=== PATIENT | female | born 1940 | race Two or more races ===

== ENCOUNTER 2025-01-17 11:32 | Emergency (ER) | payer MEDICARE, MEDICAID ==
[~2025-01-17] VITALS: Ht 157.5 cm; Wt 71.1 kg
--- NOTE | 2025-01-17 12:19 | ED.PDOC ---
HPI (NEURO) HPI Comments 84y F who presents to the ED for chief complaint of L sided weakness. Pt states she has been having L sided headache, L sided facial numbness, and L sided weakness for the past 2 days. Pt has been having associated chest pain and nausea, with associated dysuria and urinary frequency. Pt otherwise is alert and oriented and denies any changes in vision, gait or speech. Pt denies any medical history or use of medications. Pt denies any other symptoms at this time. 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[employer]ESSOR Hx Family History Family History: Reviewed,noncontributory to illness Social History Smoker: Non-Smoker Alcohol: Denies ETOH Use Drugs: Denies Drug Use Lives In: Home Constitutional: denies: chills, diaphoresis, fatigue, fever, malaise, sweats, weakness, others EENTM: denies: blurred vision, double vision, ear bleeding, ear discharge, ear drainage, ear pain, ear ringing, eye pain, eye redness, hearing loss, mouth pain, mouth swelling, nasal discharge, nose bleeding, nose congestion, nose pain, photophobia, tearing, throat pain, throat swelling, voice changes, others Respiratory: denies: cough, hemoptysis, orthopnea, SOB at rest, shortness of breath, SOB with excertion, stridor, wheezing, others Cardiovascular: reports: chest pain; denies: dizzy spells, diaphoresis, Dyspnea on exertion, edema, irregular heart beat, left arm pain, lightheadedness, palpitations, PND, syncope, others Gastrointestinal: reports: nausea; denies: abdomen distended, abdominal pain, blood streaked bowels, constipated, diarrhea, dysphagia, difficulty swallowing, hematemesis, melena, poor appetite, poor fluid intake, rectal bleeding, rectal pain, vomiting, others Genitourinary: denies: abnormal vagina bleeding, burning, dyspareunia, dysuria, flank pain, frequency, hematuria, incontinence, pain, , vagina discharge, urgency, others Neurological: reports: headache, left sided numbness, left sided weakness; denies: dizziness, fainting, numbness, paresthesia, pre-existing deficit, right sided numbness, right sided weakness, seizure, speech problems, tingling, tremors, weakness, others Musculoskeletal: denies: back pain, gout, joint pain, joint swelling, muscle pain, muscle stiffness, neck pain, others Integumetry: denies: bruises, change in color, change in hair/nails, dryness, laceration, lesions, lumps, rash, wounds, others Allergic/Immunocompromised: denies: Difficulty Healing, Frequent Infections, Hives, Itching, others Hematologic/Lymphatic: denies: anemia, blood clots, easy bleeding, easy bruising, swollen glands, others Endocrine: denies: excessive hunger, excessive sweating, excessive thirst, excessive urination, flushing, intolerance to cold, intolerance to heat, unexplained weight gain, unexplained weight loss, others Psychiatric: denies: anxiety, bipolar disorder, depression, hopeless, panic disorder, schizophrenia, sleepless, suicidal, others All Other Systems: Reviewed and Negative Physical Exam General Appearance: No Apparent Distress, Normal HEENT: Normal ENT Inspection, Pharynx Normal, TMs Normal Neck: Full Range of Motion, Non-Tender, Normal, Normal Inspection Respiratory: Chest Non-Tender, Lungs Clear, No Accessory Muscle Use, No Respiratory Distress, Normal Breath Sounds Cardiovascular: No Edema, No JVD, No Murmur, No Gallop, Normal Peripheral Pulses, Regular Rate/Rhythm Breast Exam: Deferred Gastrointestinal: No Organomegaly, Non Tender, No Pulsatile Mass, Normal Bowel Sounds, Soft Genitalia: Deferred Pelvic: Deferred Rectal: Deferred Extremities: No calf tenderness, Normal capillary refill, Normal inspection, Normal range of motion, Non-tender, No pedal edema Musculoskeletal : Apperance: Normal Neurologic: Alert, 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 Was a procedure done?: No Differential Diagnosis (SZ) Seizure: Closed Head Injury, CVA/TIA, Hypocalcemia, Hypoglycemia, Hyponatremia, Encephalopathy CVA: TIA General Weakness: Anemia, Dehydration, Hypotension, Vertigo: central, Vertigo: peripheral, Other (UTI, ) Headache: Migraine, Epidural Hemorrhage, Intracerebral Hemorrhage, Subarachnoid Hemorrhage, Sinusitis X-Ray, Labs, Meds, VS Vital Signs Date Time Temp Pulse Resp B/P (MAP) Pulse Ox O2 Delivery O2 Flow Rate FiO2 01/17/25 11:46 84 01/17/25 11:34 97.8 91 16 123/68 99 97.8 Lab Test 01/17/25 13:07 Range/Units White Blood Count 8.1 4.4-10.8 10^3/uL Red Blood Count 4.61 4.0-5.20 10^6/uL Hemoglobin 15.1 12.2-16.2 g/dL Hematocrit 44.6 36.0-46.0 % Mean Corpuscular Volume 96.7 80.0-100.0 fL Mean Corpuscular Hemoglobin 32.7 H 28.0-32.0 pg Mean Corpuscular Hemoglobin Concent 33.9 32.0-36.0 g/dL Red Cell Distribution Width 14.5 H 11.8-14.3 % Platelet Count 297 140-450 10^3/uL Mean Platelet Volume 8.8 6.9-10.8 fL Neutrophils (%) (Auto) 62.6 37.0-80.0 % Lymphocytes (%) (Auto) 26.5 10.0-50.0 % Monocytes (%) (Auto) 9.8 0.0-12.0 % Eosinophils (%) (Auto) 0.6 0.0-7.0 % Basophils (%) (Auto) 0.5 0.0-2.0 % Neutrophils # (Auto) 5.0 1.6-8.6 10 ^3/uL Lymphocytes # (Auto) 2.1 0.4-5.4 10 ^3/uL Monocytes # (Auto) 0.8 0-1.3 10 ^3/uL Eosinophils # (Auto) 0.1 0-0.8 10 ^3/uL Basophils # (Auto) 0 0-0.2 10 ^3/uL Nucleated Red Blood Cells 0.2 % Sodium Level 140 136-145 mmol/L Potassium Level 4.1 3.5-5.1 mmol/L Chloride Level 108 H 98-107 mmol/L Carbon Dioxide Level 23 20-31 mmol/L Anion Gap 9 5-15 Blood Urea Nitrogen 12 9-23 mg/dL Creatinine 0.90 0.550-1.02 mg/dL Glomerular Filtration Rate Calc 63 >90 mL/min BUN/Creatinine Ratio 13.3 10.0-20.0 Serum Glucose 102 74-106 mg/dL Calcium Level 10.2 8.7-10.4 mg/dL Troponin I High Sensitivity < 3 L </=34 ng/L B-Type Natriuretic Peptide 31.71 0-100 pg/mL Lipase Pending [place] [address] Ph: [phone] DIAGNOSTIC IMAGING Diagnostic Imaging Report : [id number] Signed PATIENT: KACI JASSO ACCT: [id number] UNIT: [id number] : 1940 LOC: ER ROOM / BED: / AGE / SEX: 84 / F ADM STATUS: REG ER SERVICE 120 ORDERING PHYSICIAN: NISH HOPKINS MD PROCEDURE(s): HWOCT - HEAD WITHOUT CONTRAST REASON: left headache and left face/body numbness x 2 day ORDER NUMBER(s): [id number], ACCESSION NUMBER(s): [id number] CT brain without contrast CLINICAL INDICATION: left headache and left face/body numbness x 2 day FINDINGS: The study was performed in a multidetector scanner. This study performed taking axial images from the skull base up to the vertex. Both brain and bone windows are photographed. Dose lowering techniques have been used including automated exposure control and adjustment of mA and/or KV according to patient size. No intraparenchymal hemorrhage or edema. Cortical sulcal markings are prominent No hydrocephalus. No midline shift. There is thickening of the intra diploic spaces of the skull particularly in the frontal regions Paranasal sinuses are clear IMPRESSION: 1. No acute intracranial pathology. Atrophy. 2. 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 ATED BY: NONA LAW MD DICTATED DATE/TIME: 01/17/251241 SIGNED BY: NONA LAW MD SIGNED DATE/TIME: 01/17/251241 CC: [address] [address] Ph: [phone] DIAGNOSTIC IMAGING Diagnostic Imaging Report : [id number] Signed PATIENT: KACI JASSO ACCT: [id number] UNIT: [id number] : 1940 LOC: ER ROOM / BED: / AGE / SEX: 84 / F ADM STATUS: REG ER SERVICE 06 ORDERING PHYSICIAN: NISH HOPKINS MD PROCEDURE(s): CXR1 - CHEST XRAY 1 VIEW REASON: chest pain ORDER NUMBER(s): [id number], ACCESSION NUMBER(s): [id number] EXAM: XY CHEST XRAY 1 VIEW Indication: chest pain Technique: Single frontal view of the chest was obtained Comparison: None FINDINGS: Lines and Tubes: None Lungs: No focal consolidation. Pleura: No effusion. No pneumothorax. Cardiomediastinal contours: Unremarkable Bones: No acute osseous abnormality. IMPRESSION: No acute cardiopulmonary disease. ATED BY: ABDIFATAH MESA MD DICTATED DATE/TIME: 01/17/251244 SIGNED BY: ABDIFATAH MESA MD SIGNED DATE/TIME: 01/17/251244 CC: X-Ray, Labs, Meds, VS Comment 84-year-old female here today with the complaints of headache, numbness and weakness as above, and intermittent chest pains. Vital signs stable, afebrile. Physical exam without any acute findings including a normal neurologic exam. CT head scan unremarkable for acute bleed. Labs overall reassuring with evidence of negative troponin, no significant electrolyte abnormalities, no significant renal dysfunction. EKG without evidence of acute ischemia. Plan made to admit the patient for stroke workup and cardiac risk stratification for her intermittent chest pains. Images Reviewed?: Images reviewed and evaluated by me Time of 1ST Reevaluation: 12:50 Reevaluation 1ST: Unchanged Patient Education/Counseling: Diagnosis, Treatment Family Education/Counseling: Diagnosis, Treatment Departure 1 Departure Time of Disposition: 14:10 Impression: Primary Impression: Headache Additional Impressions: Weakness Angina at rest Disposition: 09 ADMITTED INPATIENT Admit to: Tele Condition: Guarded Critical Care Note Critical Care Time?: Yes (30 min-critical care time only) Stability Stability form required: No Heart Score Heart Score: Heart Score Response (Comments) Value History Slightly Suspicious 0 EKG Repolarization Disturb 1 Age >65 2 Risk Factors No known risk factors 0 Troponin Normal limit 0 Total 3 I personally scribed for NISH HOPKINS MD ([facility]) on 01/17/25 at 12:19. Electronically submitted by Piper Arrington ([employer]). I personally scribed for NISH HOPKINS MD ([facility]) on 01/17/25 at 12:53. Electronically submitted by Piper Arringotn ([employer]). I personally scribed for NISH HOPKINS MD ([facility] on 01/17/25 at 12:54. Electronically submitted by Piper Arrington ([employer]). NISH HOPKINS MD Jan 17, 2025 12:19
--- NOTE | 2025-01-17 12:45 | DVH ---
CT brain without contrast CLINICAL INDICATION: left headache and left face/body numbness x 2 day FINDINGS: The study was performed in a multidetector scanner. This study performed taking axial image s from the skull base up to the vertex. Both brain and bone windows are photographed. Dose lowering techniques have been used including automated exposure control and adjustment of mA and /or KV according to patient size. No intraparenchymal hemorrhage or edema. Cortical sulcal markings are prominent No hydrocephalus. No midline shift. There is thickening of the intra diploic spaces of the skull particularly in the frontal regions Paranasal sinuses are clear IMPRESSION: 1. No acute intracranial pathology. Atrophy. 2. 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
--- NOTE | 2025-01-17 12:47 | DVH ---
EXAM: XY CHEST XRAY 1 VIEW Indication: chest pain Technique: Single frontal view of the chest was obtained Comparison: None FINDINGS: Lines and Tubes: None Lungs: No focal consolidation. Pleura: No effusion. No pneumothorax. Cardiomediastinal contours: Unremarkable Bones: No acute osseous abnormality. IMPRESSION: No acute cardiopulmonary disease.
[2025-01-17 13:41] LABS: Hematocrit 44.6 % (36.0-46.0); Hemoglobin 15.1 g/dL (12.2-16.2); Mean Corpuscular Hemoglobin 32.7 pg (28.0-32.0); Mean Corpuscular Volume 96.7 fL (80.0-100.0); Nucleated Red Blood Cells % 0.2 %
[2025-01-17 13:45] LABS: Anion Gap 9 (5-15); Calcium 10.2 mg/dL (8.7-10.4); Carbon Dioxide 23 mmol/L (20-31); Potassium 4.1 mmol/L (3.5-5.1); Sodium 140 mmol/L (136-145)
[2025-01-17 13:51] LABS: BUN/Creatinine Ratio 13.3 (10.0-20.0); Blood Urea Nitrogen 12 mg/dL (9-23); Chloride 108 mmol/L (98-107); Glucose 102 mg/dL (74-106)
[2025-01-17 16:13] VITALS: BP 122/74; PULSE 69; RESP 16; TEMP 98.1; O2SAT 96
[2025-01-17 16:33] LABS: Urine Protein, UAD Negative (Negative)
--- NOTE | 2025-01-21 10:56 | ECG ---
[facility] Test Date: 2025-01-17 Test Time: 11:46:55 Pat Name: KACI JASSO Department: ED Room: Gender: F Sketcher: YADIRA : 1940 Requested By: NISH HOPKINS Order Number: [id number] Reading MD: Rishabh Gerard Measurements Intervals [place] Rate: 84 P: 33 [place]: 134 QRS: 25 QRSD: 85 T: 1 QT: 371 QTc: 439 Interpretive Statements Sinus rhythm Low voltage, precordial leads Borderline T abnormalities, anterior leads Baseline wander in lead(s) II,aVR,aVF Electronically Signed On 01-22-2025 16:20:01 PDT by Rishabh Gerard Please click the below link to view image of tracing.
== END 2025-01-17 22:10 | disposition left against medical advice (07) ==
LOC: ER 11:32
DX: I20.89 Other forms of angina pectoris (principal); R51.9 Headache, unspecified; R53.1 Weakness; Z79.899 Other long term (current) drug therapy
CPT/HCPCS: 36415; 70450; 71045; 80048; 81001; 82947; 83690; 83880; 84484; 85025; 93005